=== PATIENT | female | born 1930 | race Caucasian/White ===

== ENCOUNTER 2018-01-26 16:43 | Emergency (ER) | payer OTHER ==
[~2018-01-26] VITALS: Ht 154.9 cm; Wt 54.2 kg
[~2018-01-26 16:43] MED LIST: ALENDRONATE SOD70 MG PO; ASPIR 8181 M1 PO; ATORVASTATIN CA80 MG PO; BENADRYL25 MG PO; CALCIUM 600 +1 EAC3 PO; CLOPIDOGREL75 MG PO; CORTISPORIN OIN15 GM TP; HYDROCHLOROTHIA25 MG PO; KLOR-CON 1010 ME1 PO; LEVOFLOXACIN750 MG PO; LOPRESSOR25 MG PO; Metoprolol PO; PERCOCET 5/31 TABLET PO; PRAVASTATIN SOD40 MG PO; SERTRALINE HCL50 MG PO; ZOFRAN4 MG PO
[2018-01-26 17:24] LABS: HEMOGLOBIN 11.2 G/DL (11.9-15.5); MCH 33.2 PG (29.0-34.0); MCHC 33.9 G/DL (30.0-36.0); MCV 97.9 FL (83-99); PLATELET COUNT 104 K/uL (156-360); RBC DIS.WIDTH-CV 13.1 % (11.8-14.6); RBC DIS.WIDTH-SD 46.6 % (39-53); RED BLOOD COUNT 3.37 M/uL (3.80-5.20); WHITE BLOOD COUNT 10.7 K/uL (4.1-10.2)
[2018-01-26 17:31] LABS: ALBUMIN 3.7 g/dL (3.2-4.8)
[2018-01-26 17:32] LABS: CHLORIDE 101 mEq/L (99-109); POTASSIUM 3.8 mEq/L (3.7-5.4); SODIUM 138 mEq/L (136-147)
[2018-01-26 17:34] LABS: GLUCOSE 108 mg/dL (70-99); TOTAL PROTEIN 7.1 g/dL (6.4-8.3)
[2018-01-26 17:37] LABS: ALKALINE PHOSPHATASE 58 IU/L (3-129)
[2018-01-26 17:38] LABS: CREATININE 1.1 mg/dL (0.6-1.3); GFR ESTIMATE (CALCULATED) 50 mL/min/
[2018-01-26 17:39] LABS: AST (GOT) 16 IU/L (2-34); UREA NITROGEN (BUN) 20 mg/dL (9-23)
[2018-01-26 17:41] LABS: ALT (GPT) 8 IU/L (3-49); LIPASE 19 U/L (1.0-51.0)
[2018-01-26 18:10] LABS: APPEARANCE CLOUDY ((CLEAR)); BILIRUBIN NEGATIVE; BLOOD SMALL; COLOR YELLOW ((YELLOW)); GLUCOSE (STRIP) NEGATIVE; KETONES NEGATIVE; LEUKOCYTES LARGE; NITRITE POSITIVE; PROTEIN (STRIP) NEGATIVE; SPECIFIC GRAVITY 1.016 (1.000-1.030); UROBILINOGEN 0.2 MG/DL (0.2-1.0)
[2018-01-26 18:22] LABS: BACTERIA 3+ /HPF; EPITHELIAL CELLS RARE /HPF; MUCUS NONE SEEN /LPF; WHITE BLOOD CELLS TNTC /HPF (0-5)
[2018-01-26] MEDS ORDERED: FLAGYL500 MG PO (19:54)
[2018-01-26] MEDS ORDERED: CIPRO500 MG PO (19:54)
[2018-01-26 20:16] VITALS: BP 143/69
== END 2018-01-26 20:16 | disposition home or self-care (01) ==
LOC: EME 16:43
PROVIDERS: Nurse Practitioner Family
DX: N39.0 Urinary tract infection, site not specified (principal); K52.9 Noninfective gastroenteritis and colitis, unspecified; F32.9 Major depressive disorder, single episode, unspecified; I10 Essential (primary) hypertension; Z85.3 Personal history of malignant neoplasm of breast
CPT/HCPCS: 74177; 80053; 81003; 83690; 85027; 99281; 99284; J7030